=== PATIENT | male | born 1955 | race Caucasian/White ===

== ENCOUNTER 2018-09-07 11:51 | Emergency (ER) | payer OTHER ==
[~2018-09-07] VITALS: Ht 170.2 cm; Wt 65.0 kg
[2018-09-07 13:05] LABS: BASOPHILS % 0.8 % (0.0-2.0); EOSINOPHILS % 2.2 % (0.0-5.0); HEMATOCRIT. 42.8 % (42.0-52.0); HEMOGLOBIN. 14.2 g/dL (14.0-18.0); LYMPHOCYTES % 13.8 % (20.0-50.0); MEAN CORPUSCULAR HEMOGLOBIN 28.6 pg (28.0-32.0); MEAN CORPUSCULAR VOLUME 86.3 fL (80.0-94.0); MEAN PLATELET VOLUME 9.6 fl (7.4-10.4); MONOCYTES % 8.8 % (2.0-8.0); NEUTROPHILS % 74.4 % (40.0-76.0); PLATELET 206 x1000/uL (130-400); RED BLOOD CELL COUNT 4.96 mill/uL (4.7-6.1); RED CELL DISTRIBUTION WIDTH 13.3 % (11.6-14.6)
[2018-09-07 15:15] VITALS: BP 168/98
[2018-09-19] MEDS ORDERED: AMLO10TA80 MT (20:02)
[2018-09-19] MEDS ORDERED: BENA20TA10 MT (20:02)
[2018-09-19] MEDS ORDERED: ASPI-1079 PO (20:02)
[2018-09-19] MEDS ORDERED: GLIP10TA10 MT (20:02)
[2018-09-19] MEDS ORDERED: METO-385 MT (20:02)
[2018-09-19] MEDS ORDERED: DONE23TA3 MT (20:02)
[2018-09-19] MEDS ORDERED: ATOR40TA70 MT (20:02)
== END 2018-09-07 15:28 | disposition home or self-care (01) ==
LOC: ER 13:17
DX: R11.0 Nausea (principal); E11.22 Type 2 diabetes mellitus with diabetic chronic kidney disease; I12.9 Hypertensive chronic kidney disease with stage 1 through stage 4 chronic kidney disease, or unspecified chronic kidney disease; N18.9 Chronic kidney disease, unspecified
CPT/HCPCS: 36415; 80048; 93005; 99285